=== PATIENT | male | born 1960 | race Caucasian/White ===

== ENCOUNTER 2016-12-16 10:45 | Emergency (ER) | payer MEDICAID ==
[~2016-12-16] VITALS: Ht 180.3 cm; Wt 70.3 kg
[2016-12-16 11:09] VITALS: BP 113/67
== END 2016-12-16 14:23 | disposition home or self-care (01) ==
LOC: ER 10:54
DX: M79.642 Pain in left hand (principal); M79.641 Pain in right hand
CPT/HCPCS: 73130 ×2; 99284; A4606; Z7610

== ENCOUNTER 2017-07-04 18:34 | Emergency (ER) | payer MEDICAID ==
[~2017-07-04] VITALS: Ht 180.3 cm; Wt 72.6 kg
--- NOTE | 2017-07-04 19:00 | NUR ---
PT TO ED DT RUQ ABDOMINAL PAIN, 8/10, NON RADIATING SINCE LAST NIGHT. PATIENT REPORTED N/V. AFEBRILE. VSS
[2017-07-04] MEDS ORDERED: ONDANSETRON HCL/PF 4 MG/2 ML VIAL ONE (19:11)
[2017-07-04] MEDS ORDERED: MORPHINE SULFATE INJ 4 MG/ML DISP.SYRIN ONE (19:11)
[2017-07-04 19:14] LABS: BASOPHILS # (AUTO) 0.2 /CMM (0.0-0.2); BASOPHILS % (AUTO) 2.4 % (0.0-2.0); EOSINOPHILS % (AUTO) 2.6 % (0.0-6.0); HEMATOCRIT 48 % (39-51); HEMOGLOBIN 16.6 g/dL (13.5-17.5); LYMPHOCYTES # (AUTO) 1.7 /CMM (0.8-4.8); LYMPHOCYTES % (AUTO) 23.1 % (20.0-44.0); MEAN CORPUSCULAR HGB CONC 35 g/dl (31.0-36.0); MEAN CORPUSCULAR VOLUME 86 fL (80-96); MONOCYTES # (AUTO) 0.4 /CMM (0.1-1.30); MONOCYTES % (AUTO) 5.1 % (2.0-12.0); NEUTROPHILS # (AUTO) 5.1 /CMM (1.8-8.9); NEUTROPHILS % (AUTO) 66.8 % (43.0-81.0); PLATELET COUNT (AUTO) 268 /CMM (150-450); RDW COEFFICIENT OF VARIATION 12.3 (11.5-15.0); RED BLOOD CELL COUNT(AUTO) 5.62 MIL/uL (4.5-6.0); WHITE BLOOD COUNT (AUTO) 7.6 K/uL (4.3-11.0)
--- NOTE | 2017-07-04 19:16 | NUR ---
REPORT GIVEN TO ARABELLA SANCHEZ
[2017-07-04] MEDS ORDERED: MORPHINE SULFATE INJ 2 MG/ML DISP.SYRIN IV ONE (19:30)
[2017-07-04] MEDS ORDERED: IV NS 0.9% 1,000 ML BAG IV ONE (19:30)
[2017-07-04] MEDS ORDERED: ONDANSETRON HCL/PF - ER 4 MG/2 ML VIAL IV ONE (19:30)
[2017-07-04 19:33] LABS: APPEARANCE,URINE Clear (CLEAR); BILIRUBIN,URINE Negative (NEGATIVE); BLOOD, URINE Negative Ery/uL (NEGATIVE); COLOR,URINE Yellow (YELLOW); KETONES,URINE Negative (NEGATIVE); LEUKOCYTE ESTERASE ,URINE Negative (NEGATIVE); NITRITE, URINE Negative (NEGATIVE); PH,URINE 6.5 (5.0-8.0); PROTEIN,URINE Negative (NEGATIVE); UGLUCOSE Negative (NEGATIVE); UROBILINOGEN,URINE 0.2 EU/dL (0.2)
[2017-07-04 19:34] LABS: CALCIUM, SERUM 8.9 mg/dL (8.5-10.1); POTASSIUM 4.2 mmol/L (3.5-5.1)
[2017-07-04 19:40] LABS: ALBUMIN 3.9 g/dL (3.4-5.0); BILIRUBIN,DIRECT 0.2 mg/dL (0.0-0.2); BILIRUBIN,TOTAL 0.8 mg/dL (0.2-1.0); TOTAL PROTEIN, SERUM 7.5 g/dL (6.4-8.2)
[2017-07-04 20:37] VITALS: BP 124/72
--- NOTE | 2017-07-04 20:39 | NUR ---
Patient discharged to home in stable condition. Written and verbal after care instructions given. Patient verbalizes understanding of instruction.IV removed. Catheter intact and site benign. Pressure and 4x4 applied to site. No bleeding noted. PT ambulatory with a steady gait VITAL SIGNS WITHIN NORMAL LIMITS.
== END 2017-07-04 20:38 | disposition home or self-care (01) ==
LOC: ER 18:36
DX: R19.7 Diarrhea, unspecified (principal); E86.0 Dehydration
CPT/HCPCS: 36415; 80048-TC; 80076-TC; 81000-TC; 83690-TC; 85025-TC; A4606; J2270; J2405; J7030; Z7610

== ENCOUNTER 2018-03-15 07:27 | Emergency (ER) | payer MEDICAID ==
[~2018-03-15] VITALS: Ht 180.3 cm; Wt 77.1 kg
[2018-03-15 07:30] VITALS: BP 118/69
== END 2018-03-15 09:44 | disposition home or self-care (01) ==
LOC: ER 07:31
DX: J40 Bronchitis, not specified as acute or chronic (principal); Z98.890 Other specified postprocedural states
CPT/HCPCS: 86403-TC; 87070-TC; 87400

== ENCOUNTER 2018-04-15 17:44 | Emergency (ER) | payer MEDICAID ==
[~2018-04-15] VITALS: Ht 180.3 cm; Wt 77.1 kg
[2018-04-15 17:48] VITALS: BP 119/66
--- NOTE | 2018-04-15 18:40 | NUR ---
pt ambulated to the Radiology dept for Xray.
--- NOTE | 2018-04-15 19:48 | NUR ---
CALLED RADIOLOGY RE: CXR READ.
== END 2018-04-15 20:56 | disposition home or self-care (01) ==
LOC: ER 17:49
DX: J40 Bronchitis, not specified as acute or chronic (principal); Z98.890 Other specified postprocedural states
CPT/HCPCS: 71046; 87804 ×2; 99284; A4606; 87400

== ENCOUNTER 2018-09-17 07:33 | Emergency (ER) | payer MEDICAID ==
[~2018-09-17] VITALS: Ht 180.3 cm; Wt 70.3 kg
--- NOTE | 2018-09-17 07:40 | NUR ---
CAME IN FOR DRY COUGH, GENERALIZED ACHES SINCE 09/10 CONCERNED ABOUT PNEMONIA. TO ER BED 7, HOOKED TO MONITOR, DR ODELL AT BEDSIDE
--- NOTE | 2018-09-17 08:09 | NUR ---
Patient discharged to home in stable condition. Written and verbal after care instructions given. Patient verbalizes understanding of instruction.
[2018-09-17 08:10] VITALS: BP 117/76
== END 2018-09-17 08:10 | disposition home or self-care (01) ==
LOC: ER 07:36
DX: J20.9 Acute bronchitis, unspecified (principal); Z98.890 Other specified postprocedural states